=== PATIENT | male | born 1955 | race Caucasian/White ===

== ENCOUNTER 2021-09-03 18:00 | Inpatient (IN) | payer OTHER ==
[~2021-09-03] VITALS: Ht 175.3 cm; Wt 134.0 kg
[~2021-09-03 18:00] MED LIST changes: -ACETAMINOPHEN 500 MG TAB PO PRN; -HYDROcodone-ACET 5/325MG TAB PO PRN; -LIDOCAINE 2%HCL (LOCAL ANESTH.) INJ 20ML MDV ONE; -MIDAZOLAM HCL 2MG/2ML 2ml VIAL (1mg/ml) ONE; -NORT25CA PO; -fentaNYL CITRATE 100 MCG/2 ML VL ONE
[2021-09-03] MEDS ORDERED: MORPHINE SULFATE INJECTION 2 MG/ML SYRG IV PRN (18:30)
[2021-09-03] MEDS ORDERED: TEMAZEPAM 15 MG CAP PO PRN (18:30)
[2021-09-03] MEDS ORDERED: ACETAMINOPHEN 325 MG TAB PO PRN (18:30)
[2021-09-03] MEDS ORDERED: DOCUSATE SOD 100 MG CAP PO PRN (18:30)
[2021-09-03] MEDS ORDERED: NITROGLYCERIN 0.4 MG SL TAB SL PRN (18:30)
[2021-09-03 19:48] LABS: Basophils # (auto) 0 10 ^3/uL (0-0.2); Basophils % (auto) 0.3 % (0.0-2.0); Eosinophils # (auto) 0 10 ^3/uL (0-0.8); Eosinophils % (auto) 0.1 % (0.0-7.0); Hematocrit 39.5 % (41.0-53.0); Hemoglobin 13.2 g/dL (13.5-17.5); Lymphocytes # (auto) 1.5 10 ^3/uL (0.4-5.4); Lymphocytes % (auto) 10.8 % (10.0-50.0); Mean Corpuscular Hemoglobin 30.4 pg (28.0-32.0); Mean Corpuscular Hgb Conc. 33.5 g/dL (32.0-36.0); Mean Corpuscular Volume 90.8 fL (80.0-100.0); Monocytes # (auto) 0.9 10 ^3/uL (0-1.3); Monocytes % (auto) 6.6 % (0.0-12.0); Neutrophils # (auto) 11.2 10 ^3/uL (1.6-8.6); Neutrophils % (auto) 82.2 % (37.0-80.0); Red Blood Cells 4.36 10^6/uL (4.5-5.90); Red Cell Distribution Width 13.1 % (11.8-14.3); White Blood Cell 13.7 10^3/uL (4.4-10.8)
[2021-09-03 20:10] LABS: INR 1.05 (0.9-1.15); Partial Thromboplastin Time 23.3 sec (23.6-33.0)
[2021-09-03] MEDS ORDERED: IOHEXOL 350 MG/ML 100ML IJ ONE (20:59)
[2021-09-03] MEDS ORDERED: METOPROLOL TARTRATE 1MG/1ML-5ML VIAL IV PRN (21:00)
[2021-09-03] MEDS: METOPROLOL TARTRATE 1MG/1ML-5ML VIAL IV ONE ×2 (21:00→21:10)
[2021-09-03] MEDS: METOPROLOL TARTRATE 25 MG TAB PO SCH ×2 (21:04→23:17)
[2021-09-03] MEDS: MORPHINE SULFATE 4 MG/ML SYR/VIAL IV PRN (21:11)
[2021-09-03 21:13] LABS: Albumin 3.5 g/dL (3.4-5.0); Calcium 8.5 mg/dL (8.5-10.1); Potassium 4.3 mmol/L (3.5-5.1)
[2021-09-03 21:16] LABS: BUN/Creatinine Ratio 19.1; Bilirubin, Total 0.6 mg/dL (0.2-1.0)
[2021-09-03] MEDS ORDERED: DRON400T PO (21:39)
[2021-09-03] MEDS: ASCORBIC ACID 500 MG TAB PO SCH (22:39)
[2021-09-03] MEDS: DRONEDARONE HCL 400 MG TAB PO SCH (23:13)
[2021-09-04] MEDS ORDERED: METOPROLOL TARTRATE 25 MG TAB PO ONE
[2021-09-04] MEDS ORDERED: METOPROLOL SUCCINATE XL 50 MG TAB PO ONE (01:15)
[2021-09-04] MEDS ORDERED: ENOXAPARIN SOD 40 MG/0.4 ML SYRINGE SC ONE (01:30)
[2021-09-04 06:34] LABS: Urine Bacteria NONE SEEN /hpf (None Seen); Urine Blood Negative /uL (Negative); Urine Mucus FEW (None Seen); Urine Specific Gravity 1.024 (1.001-1.035); Urine WBC 2 /hpf (0 - 3)
[2021-09-04] MEDS: HYDROcodone-ACET 5/325MG TAB PO PRN ×2 (07:05→14:42)
[2021-09-04 07:44] LABS: Basophils # (auto) 0.1 10 ^3/uL (0-0.2); Basophils % (auto) 0.5 % (0.0-2.0); Eosinophils # (auto) 0 10 ^3/uL (0-0.8); Eosinophils % (auto) 0.1 % (0.0-7.0); Hematocrit 31.5 % (41.0-53.0); Hemoglobin 10.7 g/dL (13.5-17.5); Lymphocytes # (auto) 2.1 10 ^3/uL (0.4-5.4); Lymphocytes % (auto) 16.4 % (10.0-50.0); Mean Corpuscular Hemoglobin 31.1 pg (28.0-32.0); Mean Corpuscular Hgb Conc. 34.1 g/dL (32.0-36.0); Mean Corpuscular Volume 91.3 fL (80.0-100.0); Monocytes # (auto) 1.3 10 ^3/uL (0-1.3); Monocytes % (auto) 10.3 % (0.0-12.0); Neutrophils # (auto) 9.4 10 ^3/uL (1.6-8.6); Neutrophils % (auto) 72.7 % (37.0-80.0); Nucleated Red Blood Cells % 0.1 %; Red Blood Cells 3.45 10^6/uL (4.5-5.90); Red Cell Distribution Width 13.4 % (11.8-14.3); White Blood Cell 12.9 10^3/uL (4.4-10.8)
[2021-09-04 08:41] LABS: Albumin 3.1 g/dL (3.4-5.0); Calcium 8.1 mg/dL (8.5-10.1); Potassium 3.9 mmol/L (3.5-5.1)
[2021-09-04 08:45] LABS: BUN/Creatinine Ratio 26.7; Bilirubin, Total 0.3 mg/dL (0.2-1.0); Total Protein 5.5 g/dL (6.4-8.2)
[2021-09-04] MEDS: ONDANSETRON HCL 4 MG/2 ML VIAL IV PRN (09:48)
[2021-09-04] MEDS: ENOXAPARIN SOD 40 MG/0.4 ML SYRINGE SC SCH (09:48)
[2021-09-04] MEDS: MORPHINE SULFATE 4 MG/ML SYR/VIAL IV PRN ×2 (09:49→22:49)
[2021-09-04] MEDS: ASCORBIC ACID 500 MG TAB PO SCH ×2 (11:00→22:49)
[2021-09-04] MEDS: ZINC SULFATE 220mg CAP or TAB PO SCH (11:00)
[2021-09-04] MEDS: DRONEDARONE HCL 400 MG TAB PO SCH ×2 (11:00→22:00)
[2021-09-04] MEDS: MULTIPLE VITAMIN TAB PO SCH (11:00)
[2021-09-04] MEDS ORDERED: BACL10TA PO (14:41)
[2021-09-04] MEDS ORDERED: NORT25CA PO (14:41)
[2021-09-04] MEDS ORDERED: CLINDAMYCIN 300MG IV 50 ML IV SCH (18:20)
[2021-09-04 18:51] VITALS: BP 108/69
[2021-09-04 22:09] VITALS: BP 100/61
[2021-09-04] MEDS: CLINDAMYCIN 300MG IV 50 ML IV SCH (22:48)
[2021-09-04] MEDS: METOPROLOL TARTRATE 25 MG TAB PO SCH (22:49)
[2021-09-04] MEDS: BACLOFEN 10 MG TAB PO SCH (22:56)
[2021-09-05] MEDS: HYDROcodone-ACET 5/325MG TAB PO PRN ×5 (00:09→21:13)
[2021-09-05 05:20] VITALS: BP 102/34
[2021-09-05] MEDS: CLINDAMYCIN 300MG IV 50 ML IV SCH ×3 (06:37→21:55)
[2021-09-05] MEDS: BACLOFEN 10 MG TAB PO SCH ×4 (06:37→23:24)
[2021-09-05] MEDS ORDERED: DIGOXIN 0.25 MG TAB PO ONE ×3 (08:00→20:00)
[2021-09-05 08:04] VITALS: BP 102/64
[2021-09-05 09:00] VITALS: BP 100/61
[2021-09-05] MEDS: ENOXAPARIN SOD 40 MG/0.4 ML SYRINGE SC SCH ×2 (10:00→10:27)
[2021-09-05] MEDS: MULTIPLE VITAMIN TAB PO SCH (10:26)
[2021-09-05] MEDS: ZINC SULFATE 220mg CAP or TAB PO SCH (10:26)
[2021-09-05] MEDS: ASCORBIC ACID 500 MG TAB PO SCH ×2 (10:27→21:57)
[2021-09-05] MEDS: METOPROLOL TARTRATE 25 MG TAB PO SCH ×2 (10:27→21:57)
[2021-09-05] MEDS: AMPYRA 10 MG PO SCH ×2 (11:01→21:58)
[2021-09-05] MEDS: DRONEDARONE HCL 400 MG TAB PO SCH ×2 (11:01→21:57)
[2021-09-05] MEDS ORDERED: ONDANSETRON HCL 4 MG/2 ML VIAL ONE (11:35)
[2021-09-05 12:54] LABS: Basophils # (auto) 0 10 ^3/uL (0-0.2); Basophils % (auto) 0.4 % (0.0-2.0); Eosinophils # (auto) 0.1 10 ^3/uL (0-0.8); Eosinophils % (auto) 1.6 % (0.0-7.0); Hematocrit 27.6 % (41.0-53.0); Hemoglobin 9.4 g/dL (13.5-17.5); Lymphocytes # (auto) 2.5 10 ^3/uL (0.4-5.4); Mean Corpuscular Hemoglobin 31.4 pg (28.0-32.0); Mean Corpuscular Hgb Conc. 34.2 g/dL (32.0-36.0); Mean Corpuscular Volume 91.8 fL (80.0-100.0); Monocytes # (auto) 1.3 10 ^3/uL (0-1.3); Monocytes % (auto) 13.3 % (0.0-12.0); Neutrophils # (auto) 5.4 10 ^3/uL (1.6-8.6); Neutrophils % (auto) 57.7 % (37.0-80.0); Nucleated Red Blood Cells % 0.1 %; Red Blood Cells 3.01 10^6/uL (4.5-5.90); Red Cell Distribution Width 13.1 % (11.8-14.3); White Blood Cell 9.4 10^3/uL (4.4-10.8)
[2021-09-05 12:58] LABS: Albumin 2.9 g/dL (3.4-5.0); Calcium 7.9 mg/dL (8.5-10.1); Potassium 4.1 mmol/L (3.5-5.1)
[2021-09-05 13:00] VITALS: BP 97/55
[2021-09-05 13:02] LABS: BUN/Creatinine Ratio 28.4; Bilirubin, Total 0.4 mg/dL (0.2-1.0); Total Protein 5.2 g/dL (6.4-8.2)
[2021-09-05 17:00] VITALS: BP 102/55
[2021-09-05 22:00] VITALS: BP_SYST 115; BP_SYST 118; BP_DIAS 73
[2021-09-06] MEDS: HYDROcodone-ACET 5/325MG TAB PO PRN ×5 (01:35→22:44)
[2021-09-06 05:00] VITALS: BP 95/48
[2021-09-06] MEDS: BACLOFEN 10 MG TAB PO SCH ×3 (06:32→18:30)
[2021-09-06] MEDS: CLINDAMYCIN 300MG IV 50 ML IV SCH ×3 (06:33→22:41)
[2021-09-06 09:00] VITALS: BP 112/55
[2021-09-06 09:09] LABS: Basophils # (auto) 0 10 ^3/uL (0-0.2); Basophils % (auto) 0.5 % (0.0-2.0); Eosinophils # (auto) 0.2 10 ^3/uL (0-0.8); Eosinophils % (auto) 2.3 % (0.0-7.0); Hematocrit 27.7 % (41.0-53.0); Hemoglobin 9.4 g/dL (13.5-17.5); Lymphocytes # (auto) 2.4 10 ^3/uL (0.4-5.4); Lymphocytes % (auto) 27.3 % (10.0-50.0); Mean Corpuscular Hemoglobin 31.1 pg (28.0-32.0); Mean Corpuscular Volume 91.6 fL (80.0-100.0); Monocytes # (auto) 0.9 10 ^3/uL (0-1.3); Monocytes % (auto) 10.3 % (0.0-12.0); Neutrophils # (auto) 5.2 10 ^3/uL (1.6-8.6); Neutrophils % (auto) 59.6 % (37.0-80.0); Nucleated Red Blood Cells % 0.1 %; Red Blood Cells 3.02 10^6/uL (4.5-5.90); White Blood Cell 8.8 10^3/uL (4.4-10.8)
[2021-09-06 09:35] LABS: Albumin 2.9 g/dL (3.4-5.0); Calcium 8.2 mg/dL (8.5-10.1); Potassium 3.9 mmol/L (3.5-5.1)
[2021-09-06 09:41] LABS: BUN/Creatinine Ratio 23.7; Bilirubin, Total 0.4 mg/dL (0.2-1.0); Total Protein 5.2 g/dL (6.4-8.2)
[2021-09-06 10:00] VITALS: BP 121/61
[2021-09-06] MEDS: ENOXAPARIN SOD 40 MG/0.4 ML SYRINGE SC SCH (10:00)
[2021-09-06] MEDS: AMPYRA 10 MG PO SCH ×2 (10:41→22:41)
[2021-09-06] MEDS: DRONEDARONE HCL 400 MG TAB PO SCH ×2 (10:42→22:41)
[2021-09-06] MEDS: METOPROLOL TARTRATE 25 MG TAB PO SCH ×2 (10:44→22:44)
[2021-09-06] MEDS: ASCORBIC ACID 500 MG TAB PO SCH ×2 (10:44→22:42)
[2021-09-06] MEDS: MULTIPLE VITAMIN TAB PO SCH (10:44)
[2021-09-06] MEDS: ZINC SULFATE 220mg CAP or TAB PO SCH (10:44)
[2021-09-06 13:00] VITALS: BP 107/64
[2021-09-06 17:00] VITALS: BP 118/52
[2021-09-06 22:00] VITALS: BP 118/57
[2021-09-07] MEDS: BACLOFEN 10 MG TAB PO SCH ×3 (00:51→13:09)
[2021-09-07 05:00] VITALS: BP 114/58
[2021-09-07] MEDS: HYDROcodone-ACET 5/325MG TAB PO PRN ×2 (05:18→10:02)
[2021-09-07] MEDS: CLINDAMYCIN 300MG IV 50 ML IV SCH (05:18)
[2021-09-07 09:00] VITALS: BP 102/56
[2021-09-07] MEDS: ZINC SULFATE 220mg CAP or TAB PO SCH (09:54)
[2021-09-07] MEDS: ASCORBIC ACID 500 MG TAB PO SCH (09:54)
[2021-09-07] MEDS: MULTIPLE VITAMIN TAB PO SCH (09:54)
[2021-09-07] MEDS: AMPYRA 10 MG PO SCH (09:54)
[2021-09-07] MEDS: METOPROLOL TARTRATE 25 MG TAB PO SCH (09:55)
[2021-09-07] MEDS: ENOXAPARIN SOD 40 MG/0.4 ML SYRINGE SC SCH (09:56)
[2021-09-07] MEDS ORDERED: AMIODARONE HCL 200 MG TAB PO SCH (10:00)
[2021-09-07] MEDS: DRONEDARONE HCL 400 MG TAB PO SCH (10:02)
[2021-09-07] MEDS: ONDANSETRON HCL 4 MG/2 ML VIAL IV PRN (11:30)
[2021-09-07 13:00] VITALS: BP 116/73
[2021-09-07 13:34] VITALS: BP 116/73
== END 2021-09-07 16:04 | disposition home or self-care (01) | DRG 310 ==
LOC: EDBD 18:00 → ER 18:04 → INTOOBSV 18:16 → TELE 18:16 → OBSVTOIN 18:16 → TELE-WESTW 09-04 16:48
PROVIDERS: ADMIT Internal Medicine; ATTEND Internal Medicine
DX: I48.91 Unspecified atrial fibrillation (principal); R55 Syncope and collapse; M19.90 Unspecified osteoarthritis, unspecified site; Z20.822 Contact with and (suspected) exposure to COVID-19; R00.0 Tachycardia, unspecified; E78.5 Hyperlipidemia, unspecified; Z79.899 Other long term (current) drug therapy; Z80.9 Family history of malignant neoplasm, unspecified; Z99.3 Dependence on wheelchair
CPT/HCPCS: 36415; 71275; 74176; 76881; 80053; 81001; 84484; 85025; 85610; 85730; 86850; 86900; 86901; 87426; 93005; 96372; 96374; 96375; 97116; 97163; 97530; G0378; J2405; J3490

== ENCOUNTER → 2021-09-03 | Day surgery (SDC) | payer OTHER ==
[~2021-09-03] VITALS: Ht 175.3 cm; Wt 120.2 kg
[~2021-09-03] MED LIST: ACETAMINOPHEN 500 MG TAB PO PRN; APIX5TAB PO; BACL10TA PO; DALF10TA PO; DRON400T PO; GLAT1INJ SC; HYDR-4795 PO; HYDROcodone-ACET 5/325MG TAB PO PRN; LIDOCAINE 2%HCL (LOCAL ANESTH.) INJ 20ML MDV ONE; MAGN400T40 PO; METO25TA5 PO; MIDAZOLAM HCL 2MG/2ML 2ml VIAL (1mg/ml) ONE; NORT-22 PO; NORT25CA PO; fentaNYL CITRATE 100 MCG/2 ML VL ONE
== END | disposition home or self-care (01) ==
LOC: CATH 06:43
PROVIDERS: ATTEND Specialist
DX: I47.1 Supraventricular tachycardia (principal); I48.0 Paroxysmal atrial fibrillation; Z82.49 Family history of ischemic heart disease and other diseases of the circulatory system; Z80.0 Family history of malignant neoplasm of digestive organs; Z82.61 Family history of arthritis; Z79.02 Long term (current) use of antithrombotics/antiplatelets; Z20.822 Contact with and (suspected) exposure to COVID-19
CPT/HCPCS: 93656; C1730; C1893; C1894; J1644; J2250; J3010; J7030; U0003; 99152; 99153